=== PATIENT | male | born 1945 | race Caucasian/White ===

== ENCOUNTER 2018-08-21 09:35 | Observation (INO) | payer MEDICARE, BC, OTHER ==
[~2018-08-21] VITALS: Ht 175.3 cm; Wt 96.3 kg
[~2018-08-21 09:35] MED LIST: AMLODIPINE5 MG PO; ASPIRIN EC81 MG PO; B/P; ELIQUIS2.5 MG PO; ELIQUIS5 MG PO; KLS OMEPRAZ20 MG PO; LISINOPRIL10 MG PO; METO50TA52 PO; PACERONE200 MG PO; PRILOSEC20 MG PO
[2018-08-21] MEDS ORDERED: AMLODIPINE2.5 MG PO (10:03)
[2018-08-21] MEDS ORDERED: VITAMIN D1000 UNIT PO (10:04)
[2018-08-21] MEDS ORDERED: MULTIVITAMIN PO (10:04)
--- NOTE | 2018-08-21 10:05 | NUR ---
PT RELATES CHEST PRESSURE 2/10. SKIN PWD. NO ACUTE DISTRESS. AT BEDSIDE. UPDATED ON POC
[2018-08-21 10:10] LABS: HEMATOCRIT 51.4 % (39.0-50.0); HEMOGLOBIN 17.1 g/dl (14.0-18.0); IMMATURE GRANULOCYTES 0.2 % (0.0-5.0); MEAN CELL VOLUME 96.4 fL CALC (80.0-100.0); MEAN CORPUSCULAR HGB 32.1 pG CALC (26.0-32.0); MEAN CORPUSCULAR HGB CONC 33.3 g/L CALC (32.0-36.0); RED BLOOD COUNT 5.33 mill/uL (4.70-6.10); RED CELL DISTRI WIDTH 11.9 % (11.5-15.5)
[2018-08-21 10:24] LABS: ANION GAP 13 (6-22 (CALC)); BUN 17 mg/dL (8-23); BUN/CREATININE RATIO 15 (12-20 (CALC)); CARBON DIOXIDE 31 mmol/l (22-30); CHLORIDE 103 mmol/l (95-108); CREATININE 1.2 mg/dL (0.7-1.3); GFR 60 ML/MIN (>=60 (CALC)); GFR FOR AFR.AMER. > 60 ML/MIN (>=60 (CALC)); POTASSIUM 4.5 mmol/l (3.5-5.1); SODIUM 143 mmol/l (137-146)
--- NOTE | 2018-08-21 10:46 | NUR ---
PT RESTIGN COMFORTABLY AT THIS TIME. VSS.
--- NOTE | 2018-08-21 11:46 | NUR ---
PT RESTING IN NO DISTRESS. VSS. SKIN PWD. DENIES SOB OR CHEST PRESSRUE. AWARE OF POC AND AGREEABLE TO ADMIT.
--- NOTE | 2018-08-21 12:20 | NUR ---
PT CONSUMED 50% OF NOON MEAL NO DISTRESS.VSS
--- NOTE | 2018-08-21 12:30 | NUR ---
CALLED REPORT TO [place]
--- NOTE | 2018-08-21 12:55 | NUR ---
TRANSPORTED TO [facility] VIA ON CONTIMUOUS TELEMETRY. PT ALERT AND TALKATIVE. DENIES DISCOMFORT
--- NOTE | 2018-08-21 13:00 | NUR ---
PT CAME FROM ER VIA WHEELCHAIR BY MARINA TIAN. HUANG IN ROOM TO OBTAIN VS AND WT. CALL LIGHT IN REACH.
[2018-08-21 13:16] VITALS: BP 114/81
--- NOTE | 2018-08-21 15:00 | NUR ---
ASSESSMENT DONE. RESPS EVEN AND UNLABORED. TELE IN PLACE PER ED TELE IS SR 67 ICVD. PT DENIES ANY PAIN AT THIS TIME. 20 LAC THAT APPEARS HEALTHY. PT DENIES ANY NEEDS AT THIS TIME. SAFETY PRECAUTIONS REINFORCED AND CALL LIGHT IN REACH.
[2018-08-21 16:15] VITALS: BP 118/80
[2018-08-21 19:09] VITALS: BP 149/92
--- NOTE | 2018-08-21 21:18 | NUR ---
PT ASSESSED, LUNG SOUNDS ARE CLEAR, ABD ACTIVE NON-TENDER, 250CC CLEAR YELLOW URINE EMPTIED FROM URINAL, NEURO'S INTACT, TRACE EDEMA TO BLE, DENIES PAIN,SOB,N/V. NO SO DISTRESS AT THIS TIME. PT AMBULATED TO RESTROOM AND BACK TO BED STABLE W/OUT SOB OR DISTRESS. BLANKET PROVIDED/REQUEST FOR COMFORT. CALL LIGHT AT BESIDE.
--- NOTE | 2018-08-21 22:35 | NUR ---
PT IN BED TALKING ON PHONE W/LIGHTS OUT AND TV ON, UPON CHECKING IN, PT WAVED THAT HE IS OKAY W/A SMILE. NO S/O DISTRESS. CALL LIGHT AT SIDE.
[2018-08-21 23:30] VITALS: BP 162/99
--- NOTE | 2018-08-21 23:30 | NUR ---
PT MEDICATED ORDERS PROVIDE. V/S ASSESSED AT THIS TIME. PT AMBULATED FROM RESTROOM AND BACK TO BED. LABS REVIEWED AND POC DISCUSSED. DENIES ANY OTHER NEEDS, DENIES PAIN/SOB/N/V OR ANY OTHER DISTRESS.
[2018-08-22 01:05] VITALS: BP 143/80
[2018-08-22 05:06] VITALS: BP 147/93
--- NOTE | 2018-08-22 07:00 | NUR ---
REPORT RECEIVED FROM MARINA BERMUDEZ;PT RESTING IN SEMI FOWLERS POSITION WITH HOUSEKEEPING AT BEDSIDE CLEANING ROOM;INTRODUCED SELF TO PT AND POC DISCUSSED;RESPIRATIONS EVEN AND UNLABORED ON RA;PT DENIES ANY CURRENT PAIN OR NEEDS;TELE MONITORING IN PLACE;ENCOURAGED PT TO CALL FOR ASSISTANCE IF NEEDED;CALL LIGHT IN REACH;WILL CONTINUE TO MONITOR
[2018-08-22 07:21] LABS: IMMATURE GRANULOCYTES 0.3 % (0.0-5.0); MEAN CELL VOLUME 94.3 fL CALC (80.0-100.0); MEAN CORPUSCULAR HGB 32.8 pG CALC (26.0-32.0); MEAN CORPUSCULAR HGB CONC 34.8 g/L CALC (32.0-36.0); NEUT# 6.2 thou/uL (1.82-7.42); RED BLOOD COUNT 4.88 mill/uL (4.70-6.10); RED CELL DISTRI WIDTH 11.7 % (11.5-15.5)
[2018-08-22 07:30] LABS: ALBUMIN 3.7 g/dL (3.2-5.0); ALKALINE PHOSPHATASE 73 u/l (38-126); AMYLASE 35 u/l (30-110); ANION GAP 10 (6-22 (CALC)); BILIRUBIN, TOTAL 1.5 mg/dL (0.0-1.4); BUN 18 mg/dL (8-23); BUN/CREATININE RATIO 15 (12-20 (CALC)); CARBON DIOXIDE 30 mmol/l (22-30); CHLORIDE 105 mmol/l (95-108); CREATININE 1.2 mg/dL (0.7-1.3); GFR 60 ML/MIN (>=60 (CALC)); GFR FOR AFR.AMER. > 60 ML/MIN (>=60 (CALC)); LIPASE 223 u/l (23-300); SGOT/AST 21 u/l (19-48); SODIUM 141 mmol/l (137-146); TOTAL PROTEIN 6.3 g/dL (6.3-8.2)
[2018-08-22 08:56] VITALS: BP 157/95
--- NOTE | 2018-08-22 09:00 | NUR ---
PT RESTING IN SEMI FOWLERS POSITION,A&O X3;VS OBTAINED AND ASSESSMENT COMPLETED;PT DENIES ANY CURRENT PAIN OR NEEDS,PAIN SCALE AND REPORTING EDUCATED;RESPIRATIONS EVEN AND UNLABORED ON RA,CLEAR LUNG SOUNDS;ABDOMEN SOFT ON PALPATION AND ACTIVE IN ALL 4 QUADRANTS;WEAK PEDAL PULSES, WITH TRACE EDEMA NOTED;SKIN INTACT;TELE MONITORING IN PLACE;#20G TO LAC FLUSHED AND PATENT,SITE APPEARS HEALTHY;PT DENIES ANY ADDITIONAL NEEDS AT THIS TIME AND IS ENCOURAGED TO CALL FOR ASSISTANCE IF NEEDED;CALL LIGHT IN REACH;WILL CONTINUE TO MONITOR
[2018-08-22 11:16] VITALS: BP 124/83
--- NOTE | 2018-08-22 11:30 | NUR ---
PT RESTING IN RECLINER TALKING ON THE PHONE;RESPIRATIONS EVEN AND UNLABORED ON RA;PT DENIES ANY CURRENT CHEST PAIN OR PRESSURE;TELE MONITORING IN PLACE;PT ENCOURAGED TO CALL FOR ASSISTANCE IF NEEDED;CALL LIGHT IN REACH;WILL CONTINUE TO MONITOR
--- NOTE | 2018-08-22 13:50 | NUR ---
AT BEDSIDE DISCUSSING POC INCLUDING D/C HOME,PT VERBALIZES UNDERSTANDING.
[2018-08-22 15:05] VITALS: BP 121/77
--- NOTE | 2018-08-22 15:30 | NUR ---
PT RESTING IN BED WATCHING TV;RESPIRATIONS EVEN AND UNLABORED ON RA;PT DENIES ANY CURRENT PAIN OR DISCOMFORTS;TELE MONITORING IN PLACE;ASSESSMENT REMAINS UNCHANGED AT THIS TIME;AWAITING DISCHARGE ORDERS;ENCOURAGED TO CALL FOR ASSISTANCE IF NEEDED;CALL LIGHT IN REACH;WILL CONTINUE TO MONITOR
--- NOTE | 2018-08-22 16:00 | NUR ---
PT TRANSFERRED TO ROOM 281 DUE TO INCREASED AGITATION. PT ATTEMPTING TO GET UP AND PULL AT IV SITE AND TELE BOX.
--- NOTE | 2018-08-22 16:15 | NUR ---
ALL DISCHARGE INSTRUCTIONS PROVIDED AT THIS TIME,QUESTIONS ANSWERED;PT ENCOURAGED TO F/U WITH PRIMARY CARE DOCTOR;IV SITE REMOVED WITH CATHETER INTACT;PT DENIES ANY ADDIITONAL NEEDS;PT DENIES WHEELCHAIR FOR DISCHARGE HOME.
--- NOTE | 2018-08-22 16:17 | NUR ---
Discharge instructions given. Patient verbalizes understanding of same. Discharged in stable condition via Ambulatory to Home with spouse. All belongings sent with pt. Pt ambulated down hallway with a steady gait accompanied by spouse.
== END 2018-08-22 16:17 | disposition home or self-care (01) ==
LOC: ED 09:35 → ED-I 10:37 → ED 11:01 → MS2 11:02 → ED-I 11:02 → MS2 12:24
PROVIDERS: Family Medicine; ADMIT Internal Medicine Nephrology; ATTEND Internal Medicine Nephrology
DX: R07.89 Other chest pain (principal); I12.9 Hypertensive chronic kidney disease with stage 1 through stage 4 chronic kidney disease, or unspecified chronic kidney disease; N18.3 Chronic kidney disease, stage 3 (moderate); I48.2 Chronic atrial fibrillation; K21.9 Gastro-esophageal reflux disease without esophagitis; F10.10 Alcohol abuse, uncomplicated; E55.9 Vitamin D deficiency, unspecified; Z79.01 Long term (current) use of anticoagulants; Z87.891 Personal history of nicotine dependence; R06.02 Shortness of breath
CPT/HCPCS: G0378

== ENCOUNTER 2019-09-16 03:56 | Observation (INO) | payer MEDICARE, BC, OTHER ==
[~2019-09-16] VITALS: Ht 170.2 cm; Wt 87.2 kg
[~2019-09-16 03:56] MED LIST changes: +AMLODIPINE2.5 MG PO; +MULTIVITAMIN PO; +VITAMIN D1000 UNIT PO
--- NOTE | 2019-09-16 04:10 | NUR ---
PATIENT TO ROOM 9 FOR BEDSIDE TRIAGE. UNDRESSED INTO A GOWN. PLACED ON MONITOR. AWAITING MD LOONEY.
[2019-09-16] MEDS ORDERED: FUROSEMIDE20 MG PO (04:57)
[2019-09-16] MEDS ORDERED: SINGULAIR10 MG PO (04:58)
[2019-09-16] MEDS ORDERED: LIPITOR20 MG PO (04:58)
--- NOTE | 2019-09-16 04:59 | NUR ---
PT RESTING WITH AT BEDSIDE. RESPS EVEN,UNLABBORED.
[2019-09-16 05:03] LABS: HEMOGLOBIN 14.9 g/dl (14.0-18.0); IMMATURE GRANULOCYTES 0.2 % (0.0-5.0); MEAN CELL VOLUME 95.9 fL CALC (80.0-100.0); MEAN CORPUSCULAR HGB 32.5 pG CALC (26.0-32.0); MEAN CORPUSCULAR HGB CONC 33.9 g/dL CAL (32.0-36.0); NEUT# 5.91 thou/uL (1.82-7.42); RED BLOOD COUNT 4.59 mill/uL (4.70-6.10); RED CELL DISTRI WIDTH 12.3 % (11.5-15.5)
[2019-09-16 05:08] LABS: ACT PARTIAL THROMBO TIME 30.1 SECONDS (20.0-32.5); INTERNATIONAL NORMALIZED RATIO 1.1 RATIO (0.7-1.3); PROTHROMBIN TIME 11.5 SECONDS (9.0-12.5)
[2019-09-16 05:15] LABS: ALBUMIN 4.1 g/dL (3.2-5.0); ALKALINE PHOSPHATASE 68 u/l (38-126); ANION GAP 10 (6-22 (CALC)); BILIRUBIN, TOTAL 1.2 mg/dL (0.0-1.4); BUN 24 mg/dL (8-23); BUN/CREATININE RATIO 18 (12-20 (CALC)); CARBON DIOXIDE 32 mmol/l (22-30); CHLORIDE 103 mmol/l (95-108); CREATININE 1.3 mg/dL (0.7-1.3); GFR 54 ML/MIN (>=60 (CALC)); GFR FOR AFR.AMER. > 60 ML/MIN (>=60 (CALC)); POTASSIUM 3.9 mmol/l (3.5-5.1); SGOT/AST 41 u/l (19-48); SODIUM 141 mmol/l (137-146); TOTAL PROTEIN 7.3 g/dL (6.3-8.2)
[2019-09-16 05:26] LABS: MYOGLOBIN 59 ng/mL (0 - 121)
--- NOTE | 2019-09-16 05:34 | NUR ---
PT OOB TO BATHROOM WITH NO NOTED DIFFICULTY
--- NOTE | 2019-09-16 07:09 | NUR ---
REPORT TO MARINA RECINOS
--- NOTE | 2019-09-16 07:20 | NUR ---
PT AMBULATED TO BATHROOMW ITH STEADY GAIT. BACK TO ROOM WITH SAME AWARE OF PLANNED ADMISIION AND WHEELCHAIR AT BEDSIDE
--- NOTE | 2019-09-16 07:22 | NUR ---
PT TRASNPORTED TO MED SURG RM 272 ON TLE VIA WHEELCHAIR, WEIGHT OBTAINED ON ARRIVAL 87.2 KG, PT SITTING ON EDGE OF BED. NO S/S OF IDSTRESS OR DISCOMFORT NOTED.
--- NOTE | 2019-09-16 07:30 | NUR ---
COMUNICATION HAND OFF REPORT RECEIVED FROM NASIR REICH RN. PT ADMITTED INTO ROOM 272. PT ORIENTED TO ROOM, CALL BUTTON, BED CONTROL, TV CONTROL. PT IS AMBULATORY , ALERT AND ORIENTED X 4 AND CAN MAKE NEEDS KNOWN. PT DENIES PAIN AND AGREES TO NOTIFY COSMETOLOGIST OF ANY CONCERNS. CALL LIGHT WITHIN EASY REACH. COSMETOLOGIST WILL CONTINUE TO MONITOR.
[2019-09-16 07:34] VITALS: BP 151/100
[2019-09-16 10:50] VITALS: BP 150/87
--- NOTE | 2019-09-16 11:29 | NUR ---
PT RESTING COMFORTABLY IN BED. HOB IN SEMI-FOWLERS. PT STABLE. DENIES PAIN OR DISCOMFORT
[2019-09-16 15:16] VITALS: BP 118/85
[2019-09-16 18:35] VITALS: BP 136/96
--- NOTE | 2019-09-16 20:00 | NUR ---
PATIENT RESTING IN BED AT THIS TIME-AWAKE ALERT AND ORIENTEDX3. PATIENT STATES THAT HE IS FEELING BETTER TONIGHT. NO CHEST PAIN, NO SOB AT THIS TIME. 1800 TROP-NEG. TELE MONITOR IN PLACE. VOIDING QS CLEAR YELLOW URINE. INSTRUCTED NEED URINE SPEC WHEN ABLE TO PROVIDE-NEW URINAL AT BEDSIDE. NO NEEDS VOICED AT THIS TIME. SAFETY PRECAUTIONS REINFORCED. CALL LIGHT IN REACH.WILL CONT TO MONITOR.
[2019-09-16 21:17] LABS: URINE BILIRUBIN - DIPSTICK NEGATIVE (NEGATIVE); URINE BLOOD DIPSTICK NEGATIVE (NEGATIVE); URINE CLARITY CLEAR; URINE COLOR YELLOW; URINE GLUCOSE - DIPSTICK NEGATIVE (NEGATIVE); URINE KETONE NEGATIVE (NEGATIVE); URINE LEUK ESTERASE NEGATIVE (Negative); URINE NITRITE - DIPSTICK NEGATIVE (Negative); URINE PH 7.5 (4.5-8.0); URINE PROTEIN - DIPSTICK NEGATIVE (NEG-TRACE)
[2019-09-17] VITALS: BP 142/94
--- NOTE | 2019-09-17 02:38 | NUR ---
PATIENT RESTING IN BED AT THIS TIME WITH NO COMPLAINTS. ALERT AND ORIENTEDX3. TROP DRAWN ORDERED. TELE MONITOR IN PLACE. TELE MONITOR INTACT. CALL LIGHT IN REACH. WILL CONT TO MONITOR.
[2019-09-17 04:42] VITALS: BP 112/73
--- NOTE | 2019-09-17 05:58 | NUR ---
PATIENT RESTING IN BED-APPEARS SLEEPING AT THIS TIME. TELE MONITOR IN PLACE. RESPS ARE EVEN AND UNLABORED. CALL LIGHT IN RREACH. WILL CONT TO MONITOR.
--- NOTE | 2019-09-17 07:00 | NUR ---
SHIFT CHANGE REPORT, PT AWAKE ALERT AND ORIENTED, NO C/O DISCOMFORT, TELE MONITOR IN PLACE, AMBULATING TO BR AT THIS TIME, CALL WEBB IN REACH.
[2019-09-17 07:47] VITALS: BP 129/87
--- NOTE | 2019-09-17 08:46 | NUR ---
PT REFUSED MEDS AT THIS TIME BUT STATED HE WILL TAKE THEM WHEN MD ROUNDS AND DISCUSSES STATUS.
[2019-09-17 10:04] VITALS: BP 129/87
--- NOTE | 2019-09-17 10:45 | NUR ---
Discharge instructions given. Patient verbalizes understanding of same. Discharged in good condition via Ambulatory to Home with spouse. All belongings sent with pt.
== END 2019-09-17 10:41 | disposition home or self-care (01) ==
LOC: ED 04:25 → ED-I 06:12 → ED 06:27 → MS2 06:28
PROVIDERS: Emergency Medicine; ADMIT Internal Medicine; ATTEND Internal Medicine
DX: R07.9 Chest pain, unspecified (principal); R06.02 Shortness of breath; I12.9 Hypertensive chronic kidney disease with stage 1 through stage 4 chronic kidney disease, or unspecified chronic kidney disease; N18.3 Chronic kidney disease, stage 3 (moderate); J44.9 Chronic obstructive pulmonary disease, unspecified; I48.91 Unspecified atrial fibrillation; R60.0 Localized edema; Z79.01 Long term (current) use of anticoagulants
CPT/HCPCS: G0378

== ENCOUNTER 2020-02-18 14:01 | Inpatient (IN) | payer OTHER, MEDICARE, BC ==
[~2020-02-18] VITALS: Ht 170.2 cm; Wt 89.9 kg
[~2020-02-18 14:01] MED LIST changes: +FUROSEMIDE20 MG PO; +LIPITOR20 MG PO; +SINGULAIR10 MG PO
--- NOTE | 2020-02-18 14:21 | NUR ---
PT TO ROOM VIA WHEELCHAIR FOR BEDSIDE TRIAGE
--- NOTE | 2020-02-18 14:50 | NUR ---
PT CHANGED TO GOWN. PT AWAKE AND ALERT. SKIN PINK WARM AND DRY. PT SITTING ON STRETCHER, REPORTS FEELING WEAK AND LEFT LOWER LEG RED WARM AND SWOLLEN.
[2020-02-18] MEDS ORDERED: CIALIS20 MG PO (14:57)
[2020-02-18 15:08] LABS: HEMATOCRIT 43.5 % (39.0-50.0); HEMOGLOBIN 14.5 g/dl (14.0-18.0); IMMATURE GRANULOCYTES 0.5 % (0.0-5.0); MEAN CELL VOLUME 97.1 fL CALC (80.0-100.0); MEAN CORPUSCULAR HGB 32.4 pG CALC (26.0-32.0); MEAN CORPUSCULAR HGB CONC 33.3 g/dL CAL (32.0-36.0); NEUT# 7.11 thou/uL (1.82-7.42); RED BLOOD COUNT 4.48 mill/uL (4.70-6.10)
[2020-02-18 15:12] LABS: URINE BILIRUBIN - DIPSTICK NEGATIVE (NEGATIVE); URINE BLOOD DIPSTICK MODERATE (NEGATIVE); URINE COLOR YELLOW; URINE GLUCOSE - DIPSTICK NEGATIVE (NEGATIVE); URINE KETONE TRACE mg/dL (NEGATIVE); URINE LEUK ESTERASE NEGATIVE (NEGATIVE); URINE NITRITE - DIPSTICK NEGATIVE (Negative); URINE PH 6.5 (4.5-8.0); URINE PROTEIN - DIPSTICK 100 mg/dL (NEG-TRACE)
[2020-02-18 15:33] LABS: URINE WBC 0-2 WBC/hpf (0-5)
--- NOTE | 2020-02-18 15:55 | NUR ---
PT RETURNED FROM ULTRASOUND. AWAITING RESULTS
[2020-02-18 16:17] LABS: ALBUMIN 4.1 g/dL (3.2-5.0); BILIRUBIN, TOTAL 1.5 mg/dL (0.0-1.4); BUN 18 mg/dL (8-23); BUN/CREATININE RATIO 17 (12-20 (CALC)); CHLORIDE 98 mmol/l (95-108); CREATININE 1.1 mg/dL (0.7-1.3); GFR > 60 ML/MIN (>=60 (CALC)); GFR FOR AFR.AMER. > 60 ML/MIN (>=60 (CALC)); LIPASE 56 u/l (23-300); POTASSIUM 4.2 mmol/l (3.5-5.1); SGOT/AST 46 u/l (19-48); SODIUM 134 mmol/l (137-146)
[2020-02-18 16:31] LABS: ALKALINE PHOSPHATASE 109 u/l (38-126); ANION GAP 17 (6-22 (CALC)); CARBON DIOXIDE 23 mmol/l (22-30)
--- NOTE | 2020-02-18 17:11 | NUR ---
PT TEMP 101.8. DR MCELROY AWARE
--- NOTE | 2020-02-18 17:25 | NUR ---
DR ESTEBAN NOTIFIED OF LACTIC ACIT TREND
--- NOTE | 2020-02-18 17:46 | NUR ---
REPORT GIVEN TO ESAU GRAYMANAGER SUMMER
[2020-02-18 17:58] VITALS: BP 141/87
--- NOTE | 2020-02-18 17:58 | NUR ---
PT ARRIVED TO MED/SURG ROOM 261 IN STABLE CONDITION VIA STRETCHER ACCOMPANIED BY MARINA SILVESTRE;PT ASSISTED TO BEDSIDE WITH X2 PERSONN ASSIST;PT A&O X3,ORIENTED TO ROOM AND CALL LIGHT SYSTEM;PT REPORTS LLE REDDENING AND EDEMA X3 DAYS DRAWER LINER;ASSESSMENT COMPLETED AND VS OBTAINED, CURRENT TEMP 100.1 AFTER TYLENOL ADMINISTARTION IN ER DRAWER LINER;PT DENIES ANY CURRENT PAIN OR DISCOMFORTS,PAIN SCALE AND REPORTING EDUCATED;RESPIRATIONS EVEN AND UNLABORED ON RA,CLEAR LUNG SOUNDS;ABDOMEN SOFT ON PALPATION AND ACTIVE IN ALL 4 QUADRANTS;WEAK PEDAL PULSES WITH +2 EDEMA TO BLE,ENCOURAGED ELEVATION ON A PILLOW;LLE REDDENED AND WARM TO TOUCH, PHOTO OBTAINED AND PLACED IN CHART;#22G TO LAC PATENT INFUSING NS BOLUS AND ABX AT THIS TIME PER ORDER;TELE MONITORING IN PLACE;PT DENIES ANY ADDITIONAL NEEDS AT THIS TIME AND IS ENCOURAGED TO CALL FOR ASSISTANCE IF NEEDED;FALL PRECAUTIONS IN PLACE WITH BED IN THE LOWEST POSITIONA AND CALL LIGHT IN REACH;WILL CONTINUE TO MONITOR
--- NOTE | 2020-02-18 18:00 | NUR ---
PT TRANSPORTED VIA STRETCHER TO MED SURG. TELEMETRY IN PLACE
--- NOTE | 2020-02-18 19:02 | NUR ---
REPORT FROM MICHELLE PADGETT. PT NOTED RESTING IN BED LAYING ON LEFT SIDE. NO APPARENT DISTRESS NOTED. PT WAKES EASILY. ALERT AND ORIENTED. PT DENIES ANY PAIN OR DISCOMFORT. LLE RED AND WARM TO TOUCH. IV SITE APPEARS HEALTHY. CLINICAL PRODUCT SPECIALIST IN PLACE. DISCUSSED POC AND SAFETY PRECAUTIONS. PT VERBALIZED UNDERSTANDING. CALL LIGHT WITHIN REACH. WILL CONTINUE TO MONITOR.
--- NOTE | 2020-02-18 20:09 | NUR ---
ASSISTED PT TO BATHROOM AT THIS TIME. PT AMBULATED WITH STEADY GAIT WITH STAND BY ASSIST. BRIEF REMOVED, PT DENIES ANY INCONTINENCE OF BOWEL OR BLADDER, STATES BRIEF WAS APPLIED IN ED. PT VOIDED IN URINAL FOR DOCUMENTATION OF I'S & O'S. NO BM DOCUMENTED AT THIS TIME PT PASSING GAS. ASSISTED PT BACK INTO BED. PT AFEBRILE AND REMAINS ALERT AND ORIENTED. CALL LIGHT WITHIN REACH. WILL CONTINUE TO MONITOR.
[2020-02-19 00:03] VITALS: BP 120/69
--- NOTE | 2020-02-19 00:20 | NUR ---
PT RESTING IN BED WITH EYES CLOSED. NO APPARENT DISTRESS NOTED. RESPIRATIONS EVEN AND UNLABORED. DISK SANDER IN PLACE. PT REMAINS AFEBRILE AT THIS TIME. IVF INFUSING WITHOUT DIFFICULTY. CALL LIGHT WITHIN REACH. WILL CONTINUE TO MONITOR.
[2020-02-19 04:29] VITALS: BP 140/89
--- NOTE | 2020-02-19 04:48 | NUR ---
PT RESTING IN BED. NO APPARENT DISTRESS NOTED. RESPIRATIONS EVEN AND UNLABORED. CALL LIGHT WITHIN REACH. WILL CONTINUE TO MONITOR.
[2020-02-19 08:04] VITALS: BP 138/87
--- NOTE | 2020-02-19 08:04 | NUR ---
RECIEVED REPORT FROM Carmen GASTELUM LPN. PT SITTING UP ON SIDE OF BEED UPON ENTERING ROOM. INTRODUCED SELF TO PT AND DISCUSSED POC. PT IS A/OX3. ASSESSMENT AND VITALS COMPLETED AT THIS TIME. BP 138/87, HR 107, O2 95% ON ROOM AIR. RESPIRATIONS ARE EVEN AND UNLABORED WITH NO SIGNS OF DISTRESS. LUNG SOUNDS ARE CLEAR. HEART RHYTHM IS NORMAL WITH TELE IN PLACE. BOWEL SOUNDS ARE ACTIVE IN ALL QUADRANTS, LAST REPORTED BM 02/16/2020. MOM TO BE ADMINISTERED. RADIAL AND RIGHT PEDAL PULSES STRONG. PT PRESENTS WITH 2+ EDEMA AND REDNESS IN LEFT LEG. SKIN IS WARM /DRY AND INTACT WITH NO BREAK DOWN. #20 IN LAC RUNNING WITH NS PER ORDER, SITE APPEARS HEALTHY AND PATENT. PT COMPLAINS OF 1/10 HEADACHE, TYLENOL ALREADY ADMINISTERED FROM LOCKS TENDER. ALL SAFETY PRECAUTIONS ARE IN PLACE. ENCOURAGED PT TO CALL FOR ASSISTANCE. WILL CONTINUE TO MONITOR
--- NOTE | 2020-02-19 08:17 | NUR ---
DR GERMAIN AND FLORA, ANJAMES AT BEDSIDE DISCUSSING POC WIHT PT
[2020-02-19 11:36] VITALS: BP 133/88
--- NOTE | 2020-02-19 12:34 | NUR ---
PT RESTING IN SEMI FOWLERS POSITION WATCHING TV. NO APPARENT DISTRESS NOTED. LEFT LEG ELEVATED ON PILLOW TO ASSIST WITH EDEMA.IV FLUIDS RUNNING PER ORDER, SITE APPEARS HEALTHY AND PATENT. ALL SAFETY PRECAUTIONS ARE IN PLACE WITH CALL LIGHT IN REACH. WILL CONTINUE TO MONITOR
--- NOTE | 2020-02-19 13:44 | NUR ---
S: ARTURO GOMES is a 74 M who presents with Cellulites. He has a history of A-Fib, gerd, cardioversion, hypertension, COPD, and cardiac ablation. All medications in patient's chart were reviewed. O: VS: BP 133/88 mmHg, P 90 bpm, RR 18 breaths/minute, T 97.9 F W 88.45 kg, HT 170.18 cm, Scr=1.1 mg/dL, CrCl= 63 ml/min A: Blood culture is pending. P: Patient is on Ceftriaxone 2g IV q24h. Vancomycin ordered for pharmacy to dose. Start Vancomycin 1g IV Q12H. Vancomycin trough is drawn before the 4th dose on 02/20/2020 @ 2030. Vancomycin goal trough is between 15-20 mcg/ml. Pharmacy will follow and or advise on antibiotics use as needed.
[2020-02-19 15:24] VITALS: BP 152/61
--- NOTE | 2020-02-19 16:21 | NUR ---
PT RESTING IN SEMI FOLWERS POSITION UPON ENTERING ROOM. RESPIRATIONS ARE EVEN AND UNLABORED WITH NO SIGNS OF DISTRESS NOTED. IVF RUNNING PER ORDER, SITE APPEARS HEALTHY AND PATENT. PT DENIES ANY PAIN OR DISCOMFORTS AT THIS TIME. ALL SAFTEY PRECAUTIONS ARE IN PLACE WITH CALL LIGHT IN REACH. WILL CONTINUE TO MONITOR.
--- NOTE | 2020-02-19 16:52 | NUR ---
REASSESSMENT OF TEMP RESULTIN GIN 98.6.
--- NOTE | 2020-02-19 19:02 | NUR ---
REPORT FROM LILIAN PADGETT. PT NOTED RESTING IN BED. NO APPARENT DISTRESS NOTED. PT WAKES EASILY. ALERT AND ORIENTED. PT DENIES ANY PAIN OR DISCOMFORT. LLE RED AND WARM TO TOUCH. IV SITE APPEARS HEALTHY. BIOFUELS PLANT MANAGER IN PLACE. DISCUSSED POC AND SAFETY PRECAUTIONS. PT VERBALIZED UNDERSTANDING. CALL LIGHT WITHIN REACH. WILL CONTINUE TO MONITOR.
[2020-02-19 19:22] VITALS: BP 145/91
--- NOTE | 2020-02-19 22:53 | NUR ---
PT MEDICATED FOR HEADACHE/RIGHT EAR PAIN WITH PRN APAP. NO APPARENT DISTRESS NOTED. PT DENIES ANY OTHER WANTS OR NEEDS. SHIPFITTER APPRENTICE IN PLACE. IV SITE APPEARS HEALTHY. CALL LIGHT WITHIN REACH. WILL CONTINEU TO MONITOR.
[2020-02-20] VITALS (7 sets, daily range): BP systolic 131–155; BP diastolic 61–99
--- NOTE | 2020-02-20 02:19 | NUR ---
PT RESTING IN BED WITH EYES CLOSED. NO APPARENT DISTRESS NOTED. RESPIRATIONS EVEN AND UNLABORED. CALL LIGHT WITHIN REACH. WILL CONTINUE TO MONITOR.
[2020-02-20 04:57] LABS: HEMATOCRIT 38.3 % (39.0-50.0); HEMOGLOBIN 12.4 g/dl (14.0-18.0); IMMATURE GRANULOCYTES 0.5 % (0.0-5.0); MEAN CELL VOLUME 98.2 fL CALC (80.0-100.0); MEAN CORPUSCULAR HGB 31.8 pG CALC (26.0-32.0); MEAN CORPUSCULAR HGB CONC 32.4 g/dL CAL (32.0-36.0); NEUT# 4.7 thou/uL (1.82-7.42); RED BLOOD COUNT 3.9 mill/uL (4.70-6.10); RED CELL DISTRI WIDTH 12.7 % (11.5-15.5)
[2020-02-20 05:13] LABS: ALKALINE PHOSPHATASE 77 u/l (38-126); BUN 18 mg/dL (8-23); BUN/CREATININE RATIO 17 (12-20 (CALC)); CHLORIDE 101 mmol/l (95-108); CREATININE 1.1 mg/dL (0.7-1.3); GFR > 60 ML/MIN (>=60 (CALC)); GFR FOR AFR.AMER. > 60 ML/MIN (>=60 (CALC)); POTASSIUM 3.7 mmol/l (3.5-5.1); SGOT/AST 49 u/l (19-48); SODIUM 136 mmol/l (137-146)
[2020-02-20 05:16] LABS: ALBUMIN 2.9 g/dL (3.2-5.0); ANION GAP 8 (6-22 (CALC)); BILIRUBIN, TOTAL 0.5 mg/dL (0.0-1.4); CARBON DIOXIDE 31 mmol/l (22-30); TOTAL PROTEIN 5.3 g/dL (6.3-8.2)
--- NOTE | 2020-02-20 12:40 | NUR ---
RECIEVED REPORT FROM DAYRON GONZALES. PT SITTING UP ON SIDE OF BED UPON ENTERING ROOM. PT IS A/O X3. INTRODUCED SELF TO PT AND DISCUSSED POC. ASESSMENT AND VITALS COMPLETED AT THIS TIME. RESPIRATIONS ARE EVEN AND UNLABORED WITH NO DISTRESS NOTED. LUNG SOUNDS ARE CLEAR. HEART RHYTHM IS NORMAL WITH TELE IN PLACE. BOWEL SOUNDS ARE ACTIVE IN ALL QUADRANTS, LAST REPORTED BM 02/19/20. RADIAL AND PEDAL PULSES ARE STRONG WITH NORMAL CAPILLARY REFILL. #20 IN LAC RUNNING WITH NS PER ORDER, SITE APPEARS HEALTHY AND PATENT. PT DENEIS OF ANY PAIN OR DISCOMFORTS. ALL SAFETY PRECAUTIONS ARE IN PLACE WITH CALL LIGHT IN REACH. WILL COTNINUE TO MONITOR.
--- NOTE | 2020-02-20 12:44 | NUR ---
PT RESTING IN SEMI FOWLERS POSITION WATCHING TV. RESPIRATIONS ARE EVEN AND UNLABORED WITH NO SIGNS OF DISTRESS NOTED. IVF RUNNING PER ORDER, SITE APPEARS HEALTHY AND PATENT. PT DENIES ANY PAIN OR DISCOMFORTS. ALL SAFETY PRECAUTIONS ARE IN PLACE WITH CALL LIGHT IN REACH. WILL COTNINUE TO MONITOR.
--- NOTE | 2020-02-20 15:54 | NUR ---
PT RESTING IN SEMI FOWLERS POSITION ON PHONE.PT IS A/O X3. RESPIRTAIONS ARE EVEN AND UNLABORED WITH NO SIGNS OF DISTRESS NOTED. IV FLUIDS RUNNING PER ORDER, SITE APPEARS HEALTHY AND PATENT. PT DENEIS ANY PAIN OR DISCOMFORTS AT THIS TIME.ALL SAFETY PRECAUTIONS ARE IN PLACE WITH CALL LIGHT IN REACH.WILL CONTINUE TO MONITOR
--- NOTE | 2020-02-20 16:37 | NUR ---
Patient is screened for PT intervention and he has no needs at this time
--- NOTE | 2020-02-20 20:00 | NUR ---
PATIENT ALERT, VEBRAL, ABLE TO MAKE NEEDS KNOWN. ABLE TO TOLERATE MEDS WELL WHOLE. CONT OF BOWEL AND BLADDER--ABLE TO AMBULATE TO AND FROM BATHROM ON HIS OWN. DENIES PAIN OR DISCOMFORT. PIV SITE PATENT TO LEFT AC--FLUSHES WELL--SITE UNREMARKABLE. NS INFUSING @ 20ML/HR WITHOUT DIFFICULTY--TOLERATING FLUIDS WELL. TELEMETRY IN PLACE--A-FIB @ 98. CONT ON IV ABT THERAPY RELATED TO LLE CELLULITIS WITH NO SIDE EFFECTS NOTED--TROUGH TO BE DRAWN @ 2030 PRIOR TO TONIGHT'S DOSE--PATIENT ALSO NOTED TO HAVE A LOW GRADE TEMPERATURE @ 1915 OF 99.6--MEDICATED WITH PRN TYLENOL--PENDING RESULTS. CONT TO HAVE 2+ EDEMA TO LLE--ENCOURAGED TO ELEVATE MUCH POSSIBLE ON PILLOWS WHILE IN BED. WILL CONT TO MONITOR FOR ANY FURTHER CHANGES.
--- NOTE | 2020-02-20 20:45 | NUR ---
RECHECK OF PATIENT TEMPERSTURE SHOWS TYLENOL WAS EFFECTIVE--TEMP @ 98.0 TEMPORAL.
--- NOTE | 2020-02-20 21:31 | NUR ---
PATIENT'S VANC TROUGH RESULTS IN--@ 11--IV VANCOMYCIN HUNG AT THIS TIME.
--- NOTE | 2020-02-21 | NUR ---
PATIENT RESTING SOUNDLY IN BED WITH EYES CLOSED AT THIS TIME. B/P NOTED TO BE SLIGHTLY ELEVATED @ 155/99 AFTER PATIENT HAD AMBULATED TO AND FROM THE ON HIS OWN--ASYMPTOMATIC--WILL MONITOR BP. IV VANCOMYCIN COMPLETED @ 2330--TOLERATED INFUSING WELL--NO S/E NOTED--REMAINS AFEBRILE @ 97.6 ALSO AT THIS TIME. PIV SITE PATENT TO LEFT AC--FLUSHES WELL--SITE UNREMARKABLE--NS INFUSING @ 20ML/HR WITHOUT DIFFICULTY---TOLERATING FLUIDS WELL. DENIES PAIN OR DISCOMFORT. WILL CONT TO MONITOR FOR ANY FURTHER CHANGES.
[2020-02-21 04:00] VITALS: BP 134/90
--- NOTE | 2020-02-21 04:00 | NUR ---
PATIENT RESTING SOUNDLY IN BED WITH EYES CLOSED AT THIS TIME. PIV SITE PATENT TO LEFT AC--FLUSHES WELL--SITE UNREMARKABLE. NS INFUSING WELL @ 20ML/HR--TOLERATING FLUIDS WELL. TELEMETRY IN PLACE--A-FIB @ 88. NO APPARENT DISTRESS NOTED. WILL CONT TO MONITOR FOR ANY FURTHER CHANGES.
[2020-02-21 05:06] LABS: HEMATOCRIT 42.6 % (39.0-50.0); HEMOGLOBIN 13.9 g/dl (14.0-18.0); IMMATURE GRANULOCYTES 0.5 % (0.0-5.0); MEAN CELL VOLUME 98.6 fL CALC (80.0-100.0); MEAN CORPUSCULAR HGB 32.2 pG CALC (26.0-32.0); MEAN CORPUSCULAR HGB CONC 32.6 g/dL CAL (32.0-36.0); NEUT# 4.41 thou/uL (1.82-7.42); RED BLOOD COUNT 4.32 mill/uL (4.70-6.10); RED CELL DISTRI WIDTH 12.6 % (11.5-15.5)
[2020-02-21 05:28] LABS: ALBUMIN 3.1 g/dL (3.2-5.0); ALKALINE PHOSPHATASE 81 u/l (38-126); ANION GAP 10 (6-22 (CALC)); BUN 15 mg/dL (8-23); BUN/CREATININE RATIO 16 (12-20 (CALC)); CARBON DIOXIDE 30 mmol/l (22-30); CHLORIDE 100 mmol/l (95-108); CREATININE 0.9 mg/dL (0.7-1.3); GFR > 60 ML/MIN (>=60 (CALC)); GFR FOR AFR.AMER. > 60 ML/MIN (>=60 (CALC)); POTASSIUM 3.9 mmol/l (3.5-5.1); SGOT/AST 57 u/l (19-48); SODIUM 136 mmol/l (137-146); TOTAL PROTEIN 5.7 g/dL (6.3-8.2)
[2020-02-21 05:29] LABS: BILIRUBIN, TOTAL 0.8 mg/dL (0.0-1.4)
[2020-02-21 07:41] VITALS: BP 125/87
--- NOTE | 2020-02-21 07:41 | NUR ---
RECIEVED REPORT FROM DAYRON CRUZ. PT SITTING ON SIDE OF BED EATING BREAKFAST UPON ENTERING ROOM. INTRODUCED SELF TO PT AND DISCUSSED POC.PT IS A/OX3. ASSESSMENT AND VITALS COMPLETED AT THIS TIME. BP 125/87, HR 115, O2 96% ON ROOM AIR. RESPIRATIONS ARE EVEN AND UNLABORED WTIH NO SIGNS OF DISTRESS NOTED. LUNG SOUNDS ARE CLEAR. HEART RHYTHM IS NORMAL WITH TELE IN PLACE. BOWEL SOUNDS ARE ACTIVE IN ALL QUADRANTS. #20 IN LAC RUNNING WITH NS PER ORDER, SITE APPEARS HEALTHY AND PATENT.RADIAL AND RIGHT PEDAL PULSES ARE STRONG WITH NORMAL CAPILLARY REFILL.LEFT PEDAL PULSE WEAK DUE TO 2+ EDEMA. LLE IS MODERATLY REDENNESS AND COOL TO TOUCH WITH NO SKIN BREAKDOWN LEFT PT DENIES OF ANY PAIN OR DISCOMFORTS AT THIS TIME. ALL SAFETY PRECAUTIONS ARE IN PLACE WITH CALL LIGHT IN REACH. WILL CONTINUE TO MONITOR.
--- NOTE | 2020-02-21 08:00 | NUR ---
Spotlight Ticket ManagementITTER ASKED PT IF HE WOULD LIKE TO BE SET UP FOR A SHOWER. PT RESFUSED NUT AGREED TO WASHING FACE AND CHANING GOWN. BED LINEN CHANGED AT THIS TIME. PT IS A/O X3 AND SELF AMBULATORY. ALL SAFETY PRECAUTIONS ARE IN PLACE WITH CALL LIGHT IN REACH. WILL CONTINUE TO MONITOR.
--- NOTE | 2020-02-21 08:20 | NUR ---
DIAMOND CROWE AT BEDSIDE DISCUSSING POC WITH PT
--- NOTE | 2020-02-21 09:10 | NUR ---
DR TRIANA AT BEDSIDE DISCUSSING POC WITH PT.
--- NOTE | 2020-02-21 09:36 | NUR ---
PT IS RECEIVING VANCOMYCIN 1G IV Q12H FOR CELLULITIS. GOAL TROUGH = 10-15 MCG/ML. TROUGH ON 02/19 @ 2029 = 11 MCG/ML. CONTINUE AT THIS DOSE. WILL RE-CHECK TROUGH 02/21 @ 0830. PHARMACY WILL CONTINUE TO FOLLOW
[2020-02-21 10:58] VITALS: BP 129/88
--- NOTE | 2020-02-21 12:15 | NUR ---
PT RESTING IN SEMI FOWLERS POSITION WITH AT BEDSIDE. RESPIRATIONS ARE EVEN AND UNLABORED WITH NO SIGNS OF DISTRESS NOTED. IVF RUNNING PER ORDER, SITE APPEARS HEALTHY AND PATENT. LEFT LEG REMAINS ELEVATED ON PILLOW TO ASSIST WITH EDEMA. PT DENIES ANY PAIN. ALL SAFETY PRCAUTIONS ARE IN PLACE WITH CALL LIGHT IN REACH. WILL CONTINUE TO MONITOR.
--- NOTE | 2020-02-21 13:00 | NUR ---
ORDERS FOR COMPRESSION DRESSING TO LEFT LEG. COMPRESSION DRESSING APPLIED FROM KNEE TO TOE PER ORDER.
[2020-02-21 16:13] VITALS: BP 129/83
--- NOTE | 2020-02-21 16:43 | NUR ---
PT RESTING IN SEMI FOWLERS POSTIION UPON ENTERING ROOM. RESPIRATIONS ARE EVEN AND UNLABORED WITH NO SIGNS OF DISTRESS NOTED. IVF RUNNING WITH NS PER ORDER, SITE APPEARS HEALTHY AND PATENT. ALL SAFTEY PRECAUTIONS ARE IN PLACE WITH CALL LIGHT IN REACH. WILL CONTINUE TO MONITOR
[2020-02-21 19:00] VITALS: BP 129/83
--- NOTE | 2020-02-21 19:35 | NUR ---
Report from dayshift nurse, via sbar format. Found patient resting in bed, alert and oriented x4, no pain or needs reported at this time, on telemetry, per ER A-fib HR controled. Dressing to left leg is CDI, left leg is swelling, but patient reports no pain at this time. Encouraged patient to call if needed, voices understanding, will follow up closely. Call martinez at reach.
--- NOTE | 2020-02-21 21:46 | NUR ---
PATIENT IS RESTING IN BED, BM REPORTED, DENIED CONSTIPATION OR DIARRHEA, VOIDED 300ML CLEAR YELLOW URINE, NO S/S OF DISTRESS NOTED, WILL FOLLOW UP CLOSELY, CALL WEBB AT REACH SAFETY MEASURES IN PLACE.
[2020-02-22] VITALS (7 sets, daily range): BP systolic 118–146; BP diastolic 61–93
--- NOTE | 2020-02-22 02:06 | NUR ---
Patient is resting in bed with eyes closed, arouses easily to stimuli, no pain or needs reported, safety measures in place, call martinez at reach.
--- NOTE | 2020-02-22 04:27 | NUR ---
patient is resting in bed, comfortably, no pain or needs reported, encouraged to call if needed, will follow up with frequently roundings. BLE elevated.
[2020-02-22 04:45] LABS: HEMATOCRIT 39.1 % (39.0-50.0); HEMOGLOBIN 12.5 g/dl (14.0-18.0); IMMATURE GRANULOCYTES 0.3 % (0.0-5.0); MEAN CORPUSCULAR HGB 31.6 pG CALC (26.0-32.0); NEUT# 3.99 thou/uL (1.82-7.42); RED BLOOD COUNT 3.95 mill/uL (4.70-6.10); RED CELL DISTRI WIDTH 12.8 % (11.5-15.5)
[2020-02-22 05:08] LABS: ALKALINE PHOSPHATASE 86 u/l (38-126); ANION GAP 8 (6-22 (CALC)); BILIRUBIN, TOTAL 0.6 mg/dL (0.0-1.4); BUN 15 mg/dL (8-23); BUN/CREATININE RATIO 16 (12-20 (CALC)); CARBON DIOXIDE 31 mmol/l (22-30); CHLORIDE 101 mmol/l (95-108); GFR > 60 ML/MIN (>=60 (CALC)); GFR FOR AFR.AMER. > 60 ML/MIN (>=60 (CALC)); POTASSIUM 3.6 mmol/l (3.5-5.1); SGOT/AST 77 u/l (19-48); SODIUM 138 mmol/l (137-146); TOTAL PROTEIN 5.4 g/dL (6.3-8.2)
--- NOTE | 2020-02-22 07:35 | NUR ---
ASSESSMNET IS COMPLETED: IV SITE IS FREE FROM REDNESS OR EDEMA. HR IS REG,PULSES ARE STRONG X4, ABD IS SOFT WITH ACTIVE BS. BREATH SOUNDS ARE CLEAR BILATERALLY. DRESSING ON LEFT LEG. CDI. CONTINUE TO OBSERVE AND MONITOR.
[2020-02-22] MEDS ORDERED: DOXYCYCL HYC100 MG PO (08:51)
--- NOTE | 2020-02-22 10:21 | NUR ---
pt is receiving vanco 1g iv q12h for cellulitis, goal trough 10-15 mcg/ml. trough this am was 13 mcg/ml. continue at this dose. pharmacy will continue to follow
--- NOTE | 2020-02-22 12:15 | NUR ---
IV SITE DISCONTINEUD CATHETER INTACT. NO REDNESS OR EDEMA. FAMILY IN THE ROOM. DISCHARGE INSTRUCTIONS GIVEN AND VERBALIZED UNDERSTANDING. Discharge instructions given. Patient verbalizes understanding of same. Discharged in stable condition via Wheelchair to Home with family. All belongings sent with pt.
== END 2020-02-22 12:20 | disposition home or self-care (01) | DRG 603 ==
LOC: ED 14:01 → ED-I 16:40 → ED 16:51 → MS2 16:52
PROVIDERS: Family Medicine; Nurse Practitioner; Physician Assistant; ADMIT Internal Medicine; ATTEND Internal Medicine
DX: L03.116 Cellulitis of left lower limb (principal); I13.0 Hypertensive heart and chronic kidney disease with heart failure and stage 1 through stage 4 chronic kidney disease, or unspecified chronic kidney disease; E87.2 Acidosis; I50.9 Heart failure, unspecified; N18.3 Chronic kidney disease, stage 3 (moderate); J44.9 Chronic obstructive pulmonary disease, unspecified; I48.91 Unspecified atrial fibrillation; R60.0 Localized edema; K21.9 Gastro-esophageal reflux disease without esophagitis; Z79.01 Long term (current) use of anticoagulants; Z20.828 Contact with and (suspected) exposure to other viral communicable diseases
CPT/HCPCS: G0378

== ENCOUNTER 2021-08-27 04:03 | Observation (INO) | payer MEDICARE, BC, OTHER ==
[2021-08-27] VITALS (8 sets, daily range): BP systolic 141–172; BP diastolic 77–96
[~2021-08-27] VITALS: Ht 170.2 cm; Wt 90.1 kg
[~2021-08-27 04:03] MED LIST changes: +CIALIS20 MG PO; +DOXYCYCL HYC100 MG PO; +MEDDOSEPAK PO
[2021-08-27] MEDS ORDERED: CORDARONE/200 MG/TAB PO (04:51)
[2021-08-27] MEDS ORDERED: LIPITOR40 M1 PO (04:51)
[2021-08-27] MEDS ORDERED: POTASSIUM CHLO10 ME1 PO (04:52)
== END 2021-08-27 12:25 | disposition home or self-care (01) ==
LOC: ED 04:03 → ED-I 05:56 → ED 06:05 → ED-I 06:06
PROVIDERS: ADMIT Hospitalist; ATTEND Hospitalist
DX: S00.03XA Contusion of scalp, initial encounter (principal); I12.9 Hypertensive chronic kidney disease with stage 1 through stage 4 chronic kidney disease, or unspecified chronic kidney disease; N18.30 Chronic kidney disease, stage 3 unspecified; I48.91 Unspecified atrial fibrillation; J44.9 Chronic obstructive pulmonary disease, unspecified; K21.9 Gastro-esophageal reflux disease without esophagitis; W06.XXXA Fall from bed, initial encounter; Y92.003 Bedroom of unspecified non-institutional (private) residence as the place of occurrence of the external cause; Z79.01 Long term (current) use of anticoagulants; Z20.822 Contact with and (suspected) exposure to COVID-19

== ENCOUNTER 2022-07-16 02:18 | Emergency (ER) | payer MEDICARE, BC, OTHER ==
[2022-07-16] VITALS (8 sets, daily range): BP systolic 128–145; BP diastolic 65–83
[~2022-07-16] VITALS: Ht 170.2 cm; Wt 91.0 kg
[~2022-07-16 02:18] MED LIST changes: +CORDARONE/200 MG/TAB PO; +LIPITOR40 M1 PO; +POTASSIUM CHLO10 ME1 PO
[2022-07-16 02:52] LABS: BASO% 0.2 % (0-3); EOS% 1.3 % (0-8); IMMATURE GRANULOCYTES 0.1 % (0.0-5.0); MEAN CELL VOLUME 98.3 fL CALC (80.0-100.0); MEAN CORPUSCULAR HGB 33.5 pG CALC (26.0-32.0); MEAN CORPUSCULAR HGB CONC 34.1 g/dL CAL (32.0-36.0); MONO% 6.9 % (2-13); NEUT# 6.82 thou/uL (1.82-7.42); NEUT% 69.5 % (42-76); RED BLOOD COUNT 4.71 mill/uL (4.70-6.10); RED CELL DISTRI WIDTH 12.3 % (11.5-15.5)
[2022-07-16 02:55] LABS: HEMATOCRIT 46.3 % (39.0-50.0); HEMOGLOBIN 15.8 g/dl (14.0-18.0)
[2022-07-16 03:04] LABS: ALKALINE PHOSPHATASE 91 u/l (38-126); ANION GAP 9 (6-22 (CALC)); BILIRUBIN, TOTAL 0.8 mg/dL (0.2-1.3); BUN 25 mg/dL (8-23); BUN/CREATININE RATIO 16 (12-20 (CALC)); CARBON DIOXIDE 33 mmol/l (22-30); CHLORIDE 104 mmol/l (95-108); CREATININE 1.6 mg/dL (0.7-1.3); GFR FOR AFR.AMER. 51 ML/MIN (>=60 (CALC)); GFR OTHER RACES 42 ML/MIN (>=60 (CALC)); POTASSIUM 3.5 mmol/l (3.5-5.1); SGOT/AST 33 u/l (19-48); SODIUM 142 mmol/l (137-146)
[2022-07-16 03:13] LABS: ALBUMIN 4.1 g/dL (3.2-5.0)
[2022-07-16 03:47] LABS: URINE BILIRUBIN - DIPSTICK NEGATIVE (NEGATIVE); URINE BLOOD DIPSTICK NEGATIVE (NEGATIVE); URINE COLOR YELLOW; URINE GLUCOSE - DIPSTICK NEGATIVE (NEGATIVE); URINE KETONE NEGATIVE (NEGATIVE); URINE LEUK ESTERASE NEGATIVE (NEGATIVE); URINE PH 5.5 (4.5-8.0); URINE PROTEIN - DIPSTICK NEGATIVE (NEG-TRACE); URINE SPECIFIC GRAVITY 1.015; URINE UROBILINOGEN - DIPSTICK 0.2 E.U./dL (0.2)
[2022-07-16 03:52] LABS: URINE NITRITE - DIPSTICK NEGATIVE (Negative)
[2022-07-16] MEDS ORDERED: TAM75CAP PO (03:56)
== END 2022-07-16 04:16 | disposition home or self-care (01) ==
LOC: ED 02:18
PROVIDERS: Emergency Medicine
DX: J10.1 Influenza due to other identified influenza virus with other respiratory manifestations (principal); I48.91 Unspecified atrial fibrillation; I10 Essential (primary) hypertension; J44.9 Chronic obstructive pulmonary disease, unspecified; K21.9 Gastro-esophageal reflux disease without esophagitis; Z79.01 Long term (current) use of anticoagulants; Z20.822 Contact with and (suspected) exposure to COVID-19